=== PATIENT | female | born 1965 | race Caucasian/White ===

== ENCOUNTER → 2020-11-14 | Outpatient (CLI) | payer OTHER ==
--- NOTE | 2020-11-14 09:15 | MR ---
EXAMINATION TYPE: MR knee LT wo con DATE OF EXAM: 11/14/2020 COMPARISON: Outside left knee x-ray November 02, 2019 HISTORY: Left knee pain and swelling. TECHNIQUE: Multiplanar, multisequence imaging of the left knee is performed without IV contrast. FINDINGS: Meniscal calcifications on x-ray less well seen on MRI. MEDIAL MENISCUS: Posterior horn has heterogeneous increased signal does not distinctly extend to shalom cular surface. LATERAL MENISCUS: Anterior and posterior horns are intact without tear. CRUCIATE LIGAMENTS: The anterior and posterior cruciate ligaments are intact and unremarkable. COLLATERAL LIGAMENTS: The medial collateral ligament and lateral collateral ligament complex are inta ct and unremarkable. EXTENSOR MECHANISM: Visualized quadriceps and patellar tendons are intact. EFFUSION: Small suprapatellar joint effusion. POPLITEAL CYST: Small septated leaking popliteal/ravi cyst. TRICOMPARTMENT SPACES: Mild tricompartment joint space loss and mild tricompartment spurring. CARTILAGE: Tricompartment articular cartilage fairly well maintained. BONE MARROW SIGNAL: Heterogeneity consistent with red marrow reconversion. No suspicious edema. OTHER: No additional significant abnormality is appreciated. IMPRESSION: Intrasubstance tear posterior horn medial meniscus. Underlying chondrocalcinosis. No full -thickness meniscal or ligamentous tear. Small septated leaking popliteal cyst. Small suprapatellar j oint effusion. Mild tricompartment degenerative changes.
== END | disposition home or self-care (01) ==
LOC: RADMRIMAIN 07:35
PROVIDERS: ATTEND Orthopaedic Surgery
DX: M23.322 Other meniscus derangements, posterior horn of medial meniscus, left knee (principal); M17.12 Unilateral primary osteoarthritis, left knee; M71.22 Synovial cyst of popliteal space [Baker], left knee

== ENCOUNTER → 2020-12-23 | Outpatient (CLI) | payer OTHER ==
[2020-12-23 08:44] LABS: Basophils # (A) 0.1 k/uL (0-0.2); Basophils % (A) 1 %; Eosinophils % (A) 0 %; HCT 46.9 % (34.0-46.0); Lymphocytes # (A) 1.8 k/uL (1.0-4.8); Lymphocytes % (A) 26 %; MCH 29.9 pg (25.0-35.0); MCHC 32.1 g/dL (31.0-37.0); MCV 93.2 fL (80.0-100.0); Mean Platelet Volume 7.2; Monocytes # (A) 0.4 k/uL (0-1.0); Monocytes % (A) 6 %; Neutrophils # (A) 4.5 k/uL (1.3-7.7); Neutrophils % (A) 64 %; Platelet Count 222 k/uL (150-450); RBC 5.03 m/uL (3.80-5.40); RDW 14.5 % (11.5-15.5); WBC 7.1 k/uL (3.8-10.6)
[2020-12-23 08:55] LABS: Potassium 4.5 mmol/L (3.5-5.1)
== END | disposition home or self-care (01) ==
LOC: LABPAT 08:00
PROVIDERS: ATTEND Orthopaedic Surgery
DX: Z01.818 Encounter for other preprocedural examination (principal); M23.92 Unspecified internal derangement of left knee; R94.31 Abnormal electrocardiogram [ECG] [EKG]
CPT/HCPCS: 36415; 80051; 85025; 93005

== ENCOUNTER 2021-01-05 08:35 | Day surgery (SDC) | payer OTHER ==
[2021-01-03 17:43] VITALS: BMI 16.7
--- NOTE | 2021-01-04 15:47 | HP ---
HISTORY AND PHYSICAL Belinda Boo is a 55-year-old patient with progressive left knee pain. We discussed options for treatment. She will proceed with arthroscopy. Consent was obtained. PAST MEDICAL HISTORY: Asthma, hypothyroidism. PAST SURGICAL HISTORY: Herniorrhaphy, lumbar spine surgery. MEDICATIONS: Daily medications are Naprosyn, Singulair and Symbicort, Zyrtec. ALLERGIES: NICKEL AND WOOL. SOCIAL HISTORY: She smokes half pack of cigarettes daily. PHYSICAL EXAMINATION: Evaluation of the left knee: Range of motion is zero to 130. Mild effusion. Tenderness medial joint line. Positive medial Rohith's. Ligament stable. Hip rotation without pain. Distal neurovascular exam intact. Left knee x-rays revealed some mild osteoarthritis and chondrocalcinosis. An MRI of the left knee revealed a medial meniscal tear, popliteal cyst, joint effusion, mild osteoarthritis. IMPRESSION: Left knee with meniscal tear versus osteochondral tear. PLAN: Left knee arthroscopy with partial meniscectomy versus chondroplasty and debridement. MMODL / IJN: [id number] /
[~2021-01-05 08:35] MED LIST: DEXAMETHASONE SOD PHOSPHATE 4 MG/ML 1 ML VIAL IV ONE; HYDROmorphone 0.5 MG/0.5 ML SYRINGE IVP PRN; LACTATED RINGERS 1,000 ML IV SCH; LIDOCAINE 1% (10MG/ML) FOR IV START INTRADERMA PRN; MIDAZOLAM 2 MG/2 ML VIAL IV PRN; ONDANSETRON 4 MG/2 ML VIAL IVP ONE
[2021-01-05] MEDS ORDERED: LIDOCAINE 1% INJ 10MG/ML (20 ML MDV) ONE (09:19)
[2021-01-05] MEDS ORDERED: PROPOFOL 10 MG/ML 20 ML VIAL IV ONE (09:19)
[2021-01-05] MEDS ORDERED: MIDAZOLAM 2 MG/2 ML VIAL ONE (09:19)
[2021-01-05] MEDS ORDERED: HYDROmorphone (PF) 1 MG/ML ONE (09:19)
[2021-01-05] MEDS ORDERED: fentaNYL (PF) 50 MCG/ML 2 ML AMP ONE (09:19)
[2021-01-05] MEDS ORDERED: BUPIVACAINE (PF) 0.25% 30 ML VIAL INTRAARTIC ONE ×2 (09:26→09:50)
--- NOTE | 2021-01-05 10:04 | P.OP ---
Date of Procedure: 01/05/21 Preoperative Diagnosis: Internal derangement left knee Postoperative Diagnosis: 1. Tear medial meniscus left knee 2. Grade 2/3 chondromalacia femoral condyle left knee 3. Reactive synovitis medial, lateral and suprapatellar compartments left knee Procedure(s) Performed: 1. Arthroscopic partial medial meniscectomy left knee 2. Arthroscopic chondroplasty medial femoral condyle left knee 3. Arthroscopic partial synovectomy medial, lateral and suprapatellar compartments left knee Anesthesia: KARLIA, local Surgeon: Amrik Chambers Estimated Blood Loss (ml): 7 Pathology: none sent Condition: stable Disposition: PACU Indications for Procedure: 55-year-old patient seen with progressive left knee pain. After treatment options were discussed, she elected to proceed with arthroscopy. Operative Findings: See description of procedure Description of Procedure: Patient was taken to the operative suite. Patient underwent a general anesthetic by the department of anesthesia. Patient was given preoperative antibiotics. The left lower extremity was placed in a well-padded arthroscopic leg cadena. The left leg was prepped and draped in the normal sterile orthopedic fashion. A lateral parapatellar and suprapatellar incision was made. Trochars were inserted. Arthroscopy was initiated. Suprapatellar pouch revealed diffuse thick reactive synovitis. The patellofemoral joint appeared to articulate congruently. There was grade 1 chondromalacia of the patella. The scope was guided into the medial gutter. No loose bodies were identified, no plica was identified. The scope was then guided into the medial compartment. A medial parapatellar incision was made. Trocar inserted followed by probe. There was a tear involving the posterior horn of the medial meniscus. There were grade 2/3 chondromalacia changes of the medial femoral condyle with some osteochondral tears present. There was some thick reactive synovitis anteriorly. I performed a partial medial meniscectomy getting down to stable meniscal tissue. I performed a chondroplasty of the medial femoral condyle getting down to stable osteochondral tissue. I performed a partial synovectomy decompressing the thick reactive synovitis. The shaver was removed. The residual meniscus was stable. The residual osteochondral surface of the femoral condyle was stable. There was good decompression of the synovitis. Scope and probe were then guided into the intercondylar notch. Cruciates were identified, probed and found to be stable. The scope and probe were then guided into lateral compartment. Lateral meniscus was probed and was found to be stable. There was no significant chondromalacia involving the lateral compartment. There was some thick reactive synovitis anteriorly. I introduced a motorized shaver and performed a partial synovectomy. The shaver was removed. There was good decompression of the synovitis. The scope was in guided back into the suprapatellar compartment. I introduced a motorized shaver into the suprap atellar compartment. I debrided some piecemeal fragments of meniscus I encountered. I performed a partial synovectomy decompressing the thick reactive synovitis. The shaver was removed. There was good decompression of the synovitis. I took one more look on the entire knee, no residual debris. Instruments were now removed from the joint. The joint was infiltrated with .25% Marcaine. Steri-Strips were applied to the portal sites. Sterile dressings were applied. The patient was placed into a HIRAL hose. No tourniquet was utilized. The patient was awakened, transferred to a bed and taken to recovery stable satisfactory condition.
[2021-01-05 10:12] VITALS: TEMP 97.7
[2021-01-05 10:16] VITALS: RESP 16
[2021-01-05] MEDS ORDERED: HYDROcodone/APAP 5-325MG 1 EACH TAB PO ONE (10:59)
[2021-01-05] MEDS ORDERED: HYDROcodone/APAP 5-325MG 1 EACH TAB ONE (11:00)
[2021-01-05 11:17] VITALS: BP 138/70; PULSE 72
== END 2021-01-05 11:31 | disposition home or self-care (01) ==
LOC: OR 08:35
PROVIDERS: ATTEND Orthopaedic Surgery
DX: M23.204 Derangement of unspecified medial meniscus due to old tear or injury, left knee (principal); M22.42 Chondromalacia patellae, left knee; M65.862 Other synovitis and tenosynovitis, left lower leg; J45.909 Unspecified asthma, uncomplicated; E03.9 Hypothyroidism, unspecified; F17.210 Nicotine dependence, cigarettes, uncomplicated; F41.9 Anxiety disorder, unspecified; F32.9 Major depressive disorder, single episode, unspecified; K21.9 Gastro-esophageal reflux disease without esophagitis; Z97.2 Presence of dental prosthetic device (complete) (partial); Z98.890 Other specified postprocedural states; Z79.1 Long term (current) use of non-steroidal anti-inflammatories (NSAID); Z79.51 Long term (current) use of inhaled steroids; Z79.899 Other long term (current) drug therapy; Z91.048 Other nonmedicinal substance allergy status; Z91.09 Other allergy status, other than to drugs and biological substances; Z88.8 Allergy status to other drugs, medicaments and biological substances
CPT/HCPCS: 29881; 29876; J2250; J1100; J2405; J0690; J2001; J3010; J1170 ×2; J2704

== ENCOUNTER → 2022-12-07 | Outpatient (CLI) | payer OTHER ==
[~2022-12-07] MED LIST changes: -DEXAMETHASONE SOD PHOSPHATE 4 MG/ML 1 ML VIAL IV ONE; -HYDROmorphone 0.5 MG/0.5 ML SYRINGE IVP PRN; -LACTATED RINGERS 1,000 ML IV SCH; -LIDOCAINE 1% (10MG/ML) FOR IV START INTRADERMA PRN; -MIDAZOLAM 2 MG/2 ML VIAL IV PRN; -ONDANSETRON 4 MG/2 ML VIAL IVP ONE; +SODIUM CHLORIDE 0.9% 500 ML 500 ML in EMPTY BAG 1 BAG IV PRN; +ZOLEDRONIC ACID 5 MG in SODIUM CHLORIDE 0.9% 100 ML IV NR
[2022-12-07 09:35] VITALS: BP 125/81; PULSE 86; RESP 16; TEMP 98.3
== END ==
LOC: PROCWHC3 09:00
PROVIDERS: ATTEND Internal Medicine
DX: M81.0 Age-related osteoporosis without current pathological fracture (principal)
CPT/HCPCS: 96365; J3489